=== PATIENT | female | born 1990 | race African-American/Black ===

== ENCOUNTER 2017-02-28 11:31 | Emergency (ER) | payer MEDICAID, OTHER ==
[~2017-02-28] VITALS: Ht 162.6 cm; Wt 75.0 kg
[2017-02-28] MEDS ORDERED: KETOROLAC 30MG/ML VIAL IV STA (11:50)
[2017-02-28] MEDS ORDERED: ONDANSETRON HCL 4MG/2ML VIAL IV STA (11:50)
[2017-02-28 12:07] LABS: BASOPHILS % 0.4 % (0.0-2.0); EOSINOPHILS % 0.1 % (0.0-5.0); HEMATOCRIT. 42.7 % (36.0-48.0); HEMOGLOBIN. 14.3 g/dL (12.0-16.0); LYMPHOCYTES % 11.9 % (20.0-50.0); MEAN CORPUSCULAR HEMOGLOBIN 30.9 pg (28.0-32.0); MEAN CORPUSCULAR VOLUME 92.1 fL (81.0-99.0); MEAN PLATELET VOLUME 8.7 fl (7.4-10.4); MONOCYTES % 7.4 % (2.0-8.0); NEUTROPHILS % 80.2 % (40.0-76.0); PLATELET 206 x1000/uL (130-400); RED BLOOD CELL COUNT 4.64 mill/uL (4.2-5.4)
[2017-02-28 12:12] LABS: CHLORIDE 106 mEq/L (98-107)
[2017-02-28 12:14] LABS: PROTHROMBIN TIME 10.7 sec (9.4-11.6)
[2017-02-28 12:15] LABS: HCG SCREEN NEGATIVE
[2017-02-28 12:20] LABS: CARBON DIOXIDE 25 mEq/L (21-32)
[2017-02-28 12:50] LABS: CLARITY URINE CLEAR (CLEAR); COLOR URINE YELLOW (YELLOW); GLUCOSE URINE NEGATIVE (NEGATIVE); KETONES URINE NEGATIVE (NEGATIVE); LEUKOCYTE ESTERASE URINE NEGATIVE (NEGATIVE); NITRITE URINE NEGATIVE (NEGATIVE); OCCULT BLOOD URINE TRACE (NEGATIVE); PROTEIN URINE NEGATIVE (NEGATIVE); SPECIFIC GRAVITY URINE 1.025 (1.005-1.030)
[2017-02-28] MEDS ORDERED: ACETAMINOPHEN WITH CODEINE 300/30MG TABLET PO ONE (13:00)
[2017-02-28 15:30] VITALS: BP 140/80
== END 2017-02-28 15:35 | disposition home or self-care (01) ==
LOC: ER 12:27
DX: R10.30 Lower abdominal pain, unspecified (principal); R11.2 Nausea with vomiting, unspecified; F12.10 Cannabis abuse, uncomplicated
CPT/HCPCS: 36415; 74176; 80053; 81001; 83690; 84703; 85025; 85610; 96374; 96375; 99285; J1885; J2405; J7030; Z7610

== ENCOUNTER 2018-12-23 19:21 | Emergency (ER) | payer MEDICAID ==
[~2018-12-23] VITALS: Ht 162.6 cm; Wt 65.0 kg
[2018-12-23] MEDS ORDERED: KETOROLAC 60MG/2ML VIAL IM STA (21:04)
[2018-12-23 22:30] VITALS: BP 160/97
== END 2018-12-23 22:30 | disposition home or self-care (01) ==
LOC: ER 19:21
DX: S62.631A Displaced fracture of distal phalanx of left index finger, initial encounter for closed fracture (principal); W23.0XXA Caught, crushed, jammed, or pinched between moving objects, initial encounter; Y93.89 Activity, other specified; Y92.89 Other specified places as the place of occurrence of the external cause; F12.90 Cannabis use, unspecified, uncomplicated; R03.0 Elevated blood-pressure reading, without diagnosis of hypertension
CPT/HCPCS: 73130; 81025; 96372; 99283; J1885

== ENCOUNTER 2020-09-17 08:24 | Emergency (ER) | payer MEDICAID ==
[~2020-09-17] VITALS: Ht 162.6 cm; Wt 77.0 kg
[2020-09-17] MEDS ORDERED: HALOPERIDOL LACTATE 5MG/ML VIAL IM ONE (10:45)
[2020-09-17] MEDS ORDERED: SODIUM CHLORIDE 0.9% 1,000 ML IV ONE (11:00)
[2020-09-17 11:14] LABS: CHLORIDE 107 mEq/L (98-107)
[2020-09-17 11:16] LABS: BASOPHILS % 0.4 % (0.0-2.0); EOSINOPHILS % 0.1 % (0.0-5.0); HEMATOCRIT. 42.5 % (36.0-48.0); HEMOGLOBIN. 14.5 g/dL (12.0-16.0); LYMPHOCYTES % 12.1 % (20.0-50.0); MEAN CORPUSCULAR HEMOGLOBIN 31.6 pg (28.0-32.0); MEAN CORPUSCULAR VOLUME 92.5 fL (81.0-99.0); MEAN PLATELET VOLUME 9.8 fl (7.4-10.4); MONOCYTES % 5.6 % (2.0-8.0); NEUTROPHILS % 81.8 % (40.0-76.0); PLATELET 229 x1000/uL (130-400); RED BLOOD CELL COUNT 4.59 mill/uL (4.2-5.4); RED CELL DISTRIBUTION WIDTH 14.3 % (11.6-14.6)
[2020-09-17 11:19] LABS: HCG SCREEN NEGATIVE
[2020-09-17 14:30] VITALS: BP 123/66
== END 2020-09-17 14:29 | disposition home or self-care (01) ==
LOC: ER 08:24
DX: R10.9 Unspecified abdominal pain (principal); R11.10 Vomiting, unspecified; F17.290 Nicotine dependence, other tobacco product, uncomplicated
CPT/HCPCS: 36415; 80048; 80076; 81025; 83690; 84703; 85025; 93005; 96360; 96361; 96372; 99284; J1630; J7030; Z7610

== ENCOUNTER 2020-11-09 15:49 | Emergency (ER) | payer MEDICAID ==
[~2020-11-09] VITALS: Ht 162.6 cm; Wt 68.0 kg
[2020-11-09 16:43] LABS: HEMOGLOBIN. 14.6 g/dL (12.0-16.0); MEAN CORPUSCULAR HEMOGLOBIN 31.3 pg (28.0-32.0); MEAN CORPUSCULAR VOLUME 90.1 fL (81.0-99.0); MEAN PLATELET VOLUME 9.3 fl (7.4-10.4); PLATELET 226 x1000/uL (130-400); RED BLOOD CELL COUNT 4.66 mill/uL (4.2-5.4)
[2020-11-09 16:48] LABS: CHLORIDE 106 mEq/L (98-107)
[2020-11-09 16:51] LABS: ETHANOL BLOOD < 10 mg/dL
[2020-11-09 16:52] LABS: *AMPHETAMINES SCREEN URINE NEGATIVE (NEGATIVE); *BARBITURATES SCREEN URINE NEGATIVE (NEGATIVE); *BENZODIAZEPINES SCREEN URINE NEGATIVE (NEGATIVE); *COCAINE SCREEN URINE NEGATIVE (NEGATIVE); METHADONE URINE SCREEN NEGATIVE (NEGATIVE); OPIATES URINE SCREEN NEGATIVE (NEGATIVE); PHENCYCLIDINE URINE SCREEN NEGATIVE (NEGATIVE)
[2020-11-09 16:57] LABS: CANNABINOID URINE SCREEN PRESUMTIVE POSITIVE (NEGATIVE)
[2020-11-09] MEDS ORDERED: KETOROLAC 30MG/ML VIAL IV ONE (17:00)
[2020-11-09] MEDS ORDERED: LORAZEPAM 2MG/ML CPJ IV ONE (17:00)
[2020-11-09 17:20] LABS: BG BASE EXCESS -2.1 mmol/L (-2.0-2.0); BG CARBOXYHEMOGLOBIN 1.2 % (0.5-1.5); BG DEOXYHEMOGLOBIN 7.1 % (0.0-5.0); BG FRACTION INSPIRED OXYGEN 21; BG HCO3 ACT 19.4 mmol/L (22.0-26.0); BG METHEMOGLOBIN 0.3 % (0.0-1.5); BG OXYGEN SATURATION 92.8 % (92.0-98.5); BG OXYHEMOGLOBIN 91.4 % (94.0-97.0); BG PCO2 25.4 mmHg (35.0-45.0); BG PO2 58.4 mmHg (75.0-100.0); BG SAMPLE SITE RIGHT RADIAL; BG TOTAL HEMOGLOBIN 14.3 g/dL (12.0-18.0); BG VENT MODE ROOM AIR
[2020-11-09 18:02] LABS: PLATELET ESTIMATE NORMAL
[2020-11-09] MEDS ORDERED: ONDA4TAB5 MT (18:03)
[2020-11-09 18:21] VITALS: BP 132/76
== END 2020-11-09 18:24 | disposition home or self-care (01) ==
LOC: ER 15:49
DX: F45.8 Other somatoform disorders (principal); R11.10 Vomiting, unspecified; J45.909 Unspecified asthma, uncomplicated
CPT/HCPCS: 36415; 36600; 71045; 80053; 80305; 80320; 81025; 82375; 82805; 83880; 84484; 85025; 96374; 96375; 99284; J1885; J2060; Z7610; G0480

== ENCOUNTER 2021-04-22 12:05 | Emergency (ER) | payer MEDICAID ==
[~2021-04-22] VITALS: Ht 167.6 cm; Wt 75.0 kg
[~2021-04-22 12:05] MED LIST: ONDA4TAB5 MT
[2021-04-22] MEDS ORDERED: ONDANSETRON 4MG ODT PO ONE (12:30)
[2021-04-22] MEDS ORDERED: DIPHENHYDRAMINE 50MG/ML VIAL IM ONE (12:45)
[2021-04-22] MEDS ORDERED: HALOPERIDOL LACTATE 5MG/ML VIAL IM ONE (12:45)
[2021-04-22 14:11] VITALS: BP 153/69
== END 2021-04-22 16:12 | disposition home or self-care (01) ==
LOC: ER 13:34
DX: R11.2 Nausea with vomiting, unspecified (principal); R19.7 Diarrhea, unspecified; F41.9 Anxiety disorder, unspecified; F12.10 Cannabis abuse, uncomplicated; J45.909 Unspecified asthma, uncomplicated; Z20.822 Contact with and (suspected) exposure to COVID-19
CPT/HCPCS: 96372; 99284; C9803; J1200; J1630; Q0162; U0003; U0005